=== PATIENT | female | born 1945 | race Caucasian/White ===

== ENCOUNTER 2025-04-04 13:55 | Emergency (ER) | payer OTHER, MEDICAID ==
[~2025-04-04] VITALS: Ht 152.4 cm; Wt 90.9 kg
[2025-04-04 14:13] VITALS: PULSE 80; RESP 15; TEMP 97.9; O2SAT 93
[2025-04-04 16:13] LABS: Urine Budding Yeast OCCASIONAL /hpf (None Seen); Urine Protein, UAD Negative (Negative)
--- NOTE | 2025-04-04 16:18 | ED.PDOC ---
Back pain HPI HPI Comments 79F BIBA w/ prior MHx of Arthritis, DM:SHx of Appendectomy, Hysterectomy, Cataract Sx and the c/c of a fall injury yesterday. Pt reports on being in the shower when she slipped and fell back hitting her back against the faucet an the back of her head against the faucet handle. Pt states on having hematoma's on her right chest and forehead. Pt denies any LOC. Pt does have pain to the cervical region and Occipital region of the head. Pt notes on having had dizziness for "month's". Denies any symptoms at this time. Patient denies any CP, SOB, dizziness, numbness, weakness, tingling, fever, or chills. Chief Complaint: Fall Injury Time Seen by MD: 15:30 Reviewed Notes: Nurses Notes, Medications, Allergies Allergies: Coded Allergies: Aspirin (Verified Allergy, Unknown, 04/04/25) Caffeine (Verified Allergy, Unknown, 04/04/25) Cinnamedrine (Verified Allergy, Unknown, 04/04/25) Information Source: Patient Mode of Arrival: EMS Timing: Hours Duration: Since onset, Hours Severity: Moderate Prehospital treatment: None Quality: Aching Onset: Fall History of: None Associated signs and symptoms: None Past Medical History PAST MEDICAL HISTORY: Arthritis, DM Surgical History: Appendectomy, Hysterectomy Surgical History (Other): Cataract Sx SHIPFITTER History: No Pertinent SHIPFITTER History Family History Family History: Reviewed,noncontributory to illness, Unknown Social History Smoker: Less Than 1 Pack/Day Alcohol: Denies ETOH Use Drugs: Denies Drug Use Lives In: Home Constitutional: denies: chills, diaphoresis, fatigue, fever, malaise, sweats, weakness, others EENTM: denies: blurred vision, double vision, ear bleeding, ear discharge, ear drainage, ear pain, ear ringing, eye pain, eye redness, hearing loss, mouth pain, mouth swelling, nasal discharge, nose bleeding, nose congestion, nose pain, photophobia, tearing, throat pain, throat swelling, voice changes, others Respiratory: denies: cough, hemoptysis, orthopnea, SOB at rest, shortness of breath, SOB with excertion, stridor, wheezing, others Cardiovascular: denies: chest pain, dizzy spells, diaphoresis, Dyspnea on exertion, edema, irregular heart beat, left arm pain, lightheadedness, palpitations, PND, syncope, others Gastrointestinal: denies: abdomen distended, abdominal pain, blood streaked bowels, constipated, diarrhea, dysphagia, difficulty swallowing, hematemesis, m spencer, nausea, poor appetite, poor fluid intake, rectal bleeding, rectal pain, vomiting, others Genitourinary: denies: abnormal vagina bleeding, burning, dyspareunia, dysuria, flank pain, frequency, hematuria, incontinence, pain, , vagina discharge, urgency, others Neurological: denies: dizziness, fainting, headache, left sided numbness, left sided weakness, numbness, paresthesia, pre-existing deficit, right sided numbness, right sided weakness, seizure, speech problems, tingling, tremors, weakness, others Musculoskeletal: reports: neck pain, others (Occipital of head pain); denies: back pain, gout, joint pain, joint swelling, muscle pain, muscle stiffness Integumetry: denies: bruises, change in color, change in hair/nails, dryness, laceration, lesions, lumps, rash, wounds, others Allergic/Immunocompromised: denies: Difficulty Healing, Frequent Infections, Hives, Itching, others Hematologic/Lymphatic: denies: anemia, blood clots, easy bleeding, easy bruisi ng, swollen glands, others Endocrine: denies: excessive hunger, excessive sweating, excessive thirst, exce ssive urination, flushing, intolerance to cold, intolerance to heat, unexplained weight gain, unexplained weight loss, others Psychiatric: denies: anxiety, bipolar disorder, depression, hopeless, panic disorder, schizophrenia, sleepless, suicidal, others All Other Systems: Reviewed and Negative Physical Exam General Appearance: No Apparent Distress, Normal HEENT: Normal ENT Inspection, PERRL/EOMI, Pharynx Normal, TMs Normal, Other (Patient fell and hurt her neck she did hurt also her occipital but it is mild) Neck: Full Range of Motion, Limited Range of Motion, Normal, Normal Inspection, Tender Lateral Respiratory: Chest Non-Tender, Lungs Clear, No Accessory Muscle Use, No Respiratory Distress, Normal Breath Sounds Cardiovascular: No Edema, No JVD, No Murmur, No Gallop, Normal Peripheral Pulses, Regular Rate/Rhythm Breast Exam: Deferred Gastrointestinal: No Organomegaly, Non Tender, No Pulsatile Mass, Normal Bowel Sounds, Soft Genitalia: Deferred Pelvic: Deferred Rectal: Deferred Extremities: No calf tenderness, Normal capillary refill, Normal inspection, Normal range of motion, Non-tender, No pedal edema Musculoskeletal : Apperance: Normal Neurologic: Alert, senior gl accountant II-XII nml as Tested, No Motor Deficits, Normal Affect, Normal Mood, No Sensory Deficits Cerebellar Function: Normal Reflexes: Normal Skin: Dry, Normal Color, Warm Peripheral Pulses: 1+ carotid (R), 1+ carotid (L) Lymphatic: No Adenopathy Was a procedure done? Was a procedure done?: No Back Pain Differential Dx Differential Diagnosis: DJD, Fracture, Musculoskeletal Pain X-Ray, Labs, Meds, VS Vital Signs Date Time Temp Pulse Resp B/P (MAP) Pulse Ox O2 Delivery O2 Flow Rate FiO2 04/04/25 17:09 78 17 106/72 (83) 96 04/04/25 14:13 97.9 80 15 143/74 (97) 93 97.9 04/04/25 14:13 80 15 93 Room Air* 0 21 04/04/25 13:57 98.6 84 18 156/74 96 98.6 Lab Test 04/04/25 15:46 Range/Units Urine Color Dark-yellow Yellow Urine Clarity Clear Clear Urine pH 6.0 5.0-9.0 Urine Specific [place] 1.022 1.001-1.035 Urine Protein Negative Negative Urine Ketones Negative Negative Urine Blood Negative Negative /uL Urine Nitrite Negative Negative Urine Bilirubin Negative Negative Urine Urobilinogen Normal Negative mg/dL Urine Leukocyte Esterase Negative Negative /uL Urine RBC 1 0 - 4 /hpf Urine Microscopic WBC < 1 0-5 /HPF Urine Squamous Epithelial Cells Few <5 /hpf Urine Bacteria None seen None Seen /hpf Urine Mucus Few None Seen Urine Yeast (Budding) Occasional None Seen /hpf Urine Glucose Normal Normal mg/dL X-Ray, Labs, Meds, VS Comment Course in the emergency department this patient fell in the bathtub and hit her neck also hit her skull but it is normal The C-spine shows multiple DJD with a cervical muscle spasm Patient will be discharged home to follow up with her PCP Time of 1ST Reevaluation: 16:00 Reevaluation 1ST: Unchanged Time of 2ND Reevaluation: 18:06 Reevaluation 2ND: Improved Consultation: PCP Patient Education/Counseling: Diagnosis, Treatment, Prognosis, Need For Follow Up Family Education/Counseling: Diagnosis, Treatment, Prognosis, Need For Follow Up, No Family Present SEPSIS Sepsis Screen Date sepsis recognized/suspect: Apr 04, 2025 Time Sepsis recognized/suspect: 1413 Recent Procedure: No On Antibiotic Therapy: No Respiratory Rate >20: No Heart Rate >90: No Temp<36 C (96.8 F) or >38.3 C: No SBP <90 or MAP <65 mmHG: No New Acute Mental Status Change: No Is the patient on CPAP, BIPAP,: No Physician Orders Cervical Spine 3v (04/04/25 16:46) Vital Signs Date Time Temp Pulse Resp B/P (MAP) Pulse Ox O2 Delivery O2 Flow Rate FiO2 04/04/25 17:09 78 17 106/72 (83) 96 04/04/25 14:13 97.9 80 15 143/74 (97) 93 97.9 04/04/25 14:13 80 15 93 Room Air* 0 21 04/04/25 13:57 98.6 84 18 156/74 96 98.6 Departure 1 Departure Time of Disposition: 18:06 Impression: Primary Impression: Fall at home Qualified Codes: W19.XXXA - Unspecified fall, initial encounter; Y92.009 - Unspecified place in unspecified non-institutional (private) residence as the place of occurrence of the external cause Additional Impressions: DJD (degenerative joint disease), cervical Qualified Codes: M47.812 - Spondylosis without myelopathy or radiculopathy, cervical region Cervical paraspinal muscle spasm Disposition: 01 HOME / SELF CARE / HOMELESS Condition: Fair Additional Instructions: [facility] and follow up with your PCP e-Prescriptions Cyclobenzaprine Hcl (Cyclobenzaprine Hcl) 5 Mg Tab 1 TAB PO TID for 10 Days, #30 TAB Prov: NGHIA NOWAK MD 04/04/25 Naproxen (Naproxen) 375 Mg Tab 1 TAB PO BID for 10 Days, #20 TAB 5 Refills Prov: NGHIA NOWAK MD 04/04/25 Discharged With: Self Critical Care Note Critical Care Time?: No Stability Stability form required: No Heart Score Heart Score: Heart Score Response (Comments) Value History N/A 0 EKG N/A 0 Age >65 2 Risk Factors No known risk factors 0 Troponin N/A 0 Total 2 I personally scribed for NGHIA NOWAK MD ([email or web address]) on 04/04/25 at 16:18. Electronically submitted by Abraham Askew ([employer]). I personally scribed for NGHIA NOWAK MD ([email or web address]) on 04/04/25 at 16:18. Electronically submitted by Abraham Askew ([employer]). NGHIA NOWAK MD Apr 04, 2025 16:18
--- NOTE | 2025-04-04 17:57 | DVH ---
Indication: Fell Technique: XY CERVICAL SPINE 3VXY Comparison: None FINDINGS/IMPRESSION: The cervical heights are maintained. Moderate to advanced multilevel disc space narrowing most pronounced at C5-6 and C6-7. No prevertebral edema. Straightening of normal cervical spine curvature. Moderate facet hypertrophic changes, [id number]. Patient edentulous.
[2025-04-04] MEDS ORDERED: CYCL-837 PO (18:09)
[2025-04-04] MEDS ORDERED: NAPR-957 PO (18:09)
[2025-04-04 18:15] VITALS: BP 137/61; PULSE 87; RESP 18; O2SAT 96
== END 2025-04-04 18:38 | disposition home or self-care (01) ==
LOC: ER 13:55 → EDUNIT# 13:55 → EDBD 13:55 → ER 18:38
DX: M47.812 Spondylosis without myelopathy or radiculopathy, cervical region (principal); R42 Dizziness and giddiness; E11.9 Type 2 diabetes mellitus without complications; F17.210 Nicotine dependence, cigarettes, uncomplicated; Z88.6 Allergy status to analgesic agent; Z90.49 Acquired absence of other specified parts of digestive tract; Z90.710 Acquired absence of both cervix and uterus; W18.2XXA Fall in (into) shower or empty bathtub, initial encounter; Y92.009 Unspecified place in unspecified non-institutional (private) residence as the place of occurrence of the external cause; Y93.E1 Activity, personal bathing and showering; Y99.8 Other external cause status
CPT/HCPCS: 72040; 81001